=== PATIENT | female | born 1995 | race Caucasian/White ===

== ENCOUNTER 2022-09-05 12:53 | Emergency (ER) | payer MEDICAID ==
[~2022-09-05] VITALS: Ht 157.5 cm; Wt 81.0 kg
[2022-09-05 12:56] VITALS: BP 150/90
[2022-09-05] MEDS ORDERED: IBUP-2029 MT (15:55)
== END 2022-09-05 16:42 | disposition home or self-care (01) ==
LOC: ER 12:57
DX: S63.502A Unspecified sprain of left wrist, initial encounter (principal); S70.12XA Contusion of left thigh, initial encounter; S80.02XA Contusion of left knee, initial encounter; S70.02XA Contusion of left hip, initial encounter; V49.49XA Driver injured in collision with other motor vehicles in traffic accident, initial encounter; Y93.89 Activity, other specified; Y92.89 Other specified places as the place of occurrence of the external cause; Y99.8 Other external cause status
CPT/HCPCS: 73110; 73502; 73552; 73562; 81025; 99284